=== PATIENT | male | born 1960 ===

== ENCOUNTER 2017-09-15 01:13 | Inpatient (IN) | payer OTHER ==
[2017-09-14 15:44] LABS: INR 1.03
[~2017-09-15] VITALS: Ht 175.3 cm; Wt 129.7 kg
[2017-09-15] VITALS (18 sets, daily range): BP systolic 92–134; BP diastolic 58–83
[~2017-09-15 01:13] MED LIST: ASPI-1471 PO; BENA5TAB32 PO; EZET10TA41 PO; METO25TA23 PO; [UNRECOGNIZED DRUG - CODE] PO
[2017-09-15] MEDS ORDERED: NORMOSOL R SOLN(*) 1000 ML BAG 1,000 ML IV PRN ×2 (06:00→09:40)
[2017-09-15] MEDS ORDERED: FAMOTIDINE 20 MG TAB PO ONE (06:00)
[2017-09-15] MEDS ORDERED: MIDAZOLAM 2 MG/2 ML VIAL IVP ONE (06:00)
[2017-09-15] MEDS ORDERED: cloNIDine EPIDUR INJ 100MCG/ML 40 MCG, ROPIVACAINE 0.5% 20 ML VIAL 25 ML, EPINEPHrine H... INJ ONE (06:00)
[2017-09-15] MEDS ORDERED: TRANEXAMIC AC 1000 MG/10ML SDV 1,000 MG in DEXTROSE 5% 50 ML BAG 50 ML IV ONE (06:00)
[2017-09-15] MEDS ORDERED: LIDOCAINE/SOD BICARB 8.4% SYR ID ONE (06:00)
[2017-09-15] MEDS ORDERED: CLINDAMYCIN(*) 900 MG/NS 50 ML 50 ML IVPB ONE (06:00)
[2017-09-15] MEDS ORDERED: fentaNYL CITR 100 MCG/2 ML AMP ONE (06:50)
[2017-09-15] MEDS ORDERED: PROPOFOL EMUL(*) 10MG/ML 20 ML 20 ML ONE (06:50)
[2017-09-15] MEDS ORDERED: LIDOCAINE MPF 1% 5 ML VIAL ONE (06:50)
[2017-09-15] MEDS ORDERED: ONDANSETRON 4 MG/2 ML VIAL ONE (06:50)
[2017-09-15] MEDS ORDERED: DEXAMETHASONE SOD 4 MG/ML VIAL ONE (06:50)
--- NOTE | 2017-09-15 07:00 | LEVENE H&P ---
DATE OF ADMISSION: September 15, 2017 IDENTIFICATION/CHIEF COMPLAINT The patient is a 57-year-old gentleman with chief complaint of left hip pain. HISTORY OF PRESENT ILLNESS The patient has a longstanding history of left hip arthritis, progressively painful and debilitating, refractory to conservative care. Surgery is indicated to relieve symptoms after failure of nonoperative measures. PAST MEDICAL HISTORY Notable for hypertension controlled on medication, sleep apnea controlled with CPAP. CURRENT MEDICATIONS 1. Indapamide 2.5 mg per day. 2. Zetia 10 mg p.o. q.day. 3. Metoprolol ER 25 mg p.o. q.day. 4. Benazepril 1 p.o. q.day. 5. 81 mg aspirin daily. PAST SURGICAL HISTORY Notable for hernia repair, hip resurfacing on the contralateral side, appendectomy. FAMILY HISTORY Notable for mother with heart disease and an SD. Father with aneurysm. SOCIAL HISTORY Notable for 30+ years of chewing tobacco about a half a can per day. He drinks alcohol socially, denies abuse. REVIEW OF SYSTEMS Noncontributory. PHYSICAL EXAMINATION GENERAL: This is a well-developed, well-nourished male. HEENT: Normocephalic, atraumatic. NECK: Supple. LUNGS: Clear. HEART: Regular. ABDOMEN: Soft. ORTHOPEDIC EXAMINATION: Left hip is very stiff at the limits of flexion and rotation. This reproduces his pain. Hip girdle strength is normal. Skin envelope is intact. Neurovascular function is intact. RADIOGRAPHIC DATA Radiographs demonstrate end-stage hip arthritis. ASSESSMENT Left hip degenerative joint disease, progressively painful and debilitating, refractory to conservative care. PLAN Per patient request, we are going to proceed with total hip arthroplasty. Nature of this procedure, risks, benefits, the anticipated rehabilitative course were reviewed. The risks include, but are not limited to, , major medical or anesthetic complication, infection, neurovascular injury, blood transfusion, stiffness, scarring, fracture, tendon rupture, instability, implant loosening, migration or failure, persistent or recurrent pain, leg length discrepancy, need for additional operation, and other unforeseen. He understands and wishes to proceed. Signed permit was placed in the chart, no guarantees given or implied. DEJA
[2017-09-15] MEDS ORDERED: KETAMINE HCL 200 MG/20 ML MDV ONE (07:30)
[2017-09-15] MEDS ORDERED: ACETAMINOPHEN 325 MG TAB PO PRN (09:40)
[2017-09-15] MEDS ORDERED: ZOLPIDEM TARTRATE 5 MG TAB PO PRN (09:40)
[2017-09-15] MEDS ORDERED: diphenhydrAMINE 25 MG CAP PO PRN (09:40)
[2017-09-15] MEDS ORDERED: diphenhydrAMINE 50 MG/ML VIAL IVP PRN (09:40)
[2017-09-15] MEDS ORDERED: PROMETHAZINE 25 MG/ML 1 ML AMP IVP PRN (09:40)
[2017-09-15] MEDS ORDERED: BISACODYL 10 MG SUPP PR PRN (09:40)
[2017-09-15] MEDS ORDERED: DIAZEPAM 5 MG TAB PO PRN (09:40)
[2017-09-15] MEDS ORDERED: BENZOCAINE/MENTHOL 1 EACH LOZG PO PRN (09:40)
[2017-09-15] MEDS ORDERED: MAGNESIUM HYDROXIDE* 30ML UDCP PO PRN (09:40)
[2017-09-15] MEDS ORDERED: FLUSH 10 ML SYR IVP PRN (09:40)
--- NOTE | 2017-09-15 09:55 | RADIOLOGY IMAGING REPORT ---
FACILITY: [facility] - [place] PATIENT NAME: Ayo Young : 1960 MR: [id number] V: [id number] EXAM DATE: ORDERING PHYSICIAN: YOSSI BENJAMIN TECHNOLOGIST: Location: [facility] [place] Patient: Ayo Young : 1960 Visit/Account:[id number] Date of Sevice: 09/15/2017 Exam type: PELVIS History: p L ABBY Comparison: None. Findings: There are bilateral hip arthroplasties present. The left hip arthroplasties apparently new by histor y. This arthroplasty appears in good anatomic alignment. Skin malena and soft tissue gas projects over the lateral aspect of the left hip IMPRESSION: 1. Bilateral hip arthroplasties appear in good anatomic alignment on this single AP view Report Dictated By: Shayy Benavidez MD at 09/15/2017 9:49 AM Report E-Signed By: Shayy Benavidez MD at 09/15/2017 9:51 AM WSN:[id number]
[2017-09-15] MEDS ORDERED: LISINOPRIL 10 MG TAB PO SCH ×2 (12:00→12:15)
[2017-09-15] MEDS ORDERED: ATOR20TA22 PO (12:04)
--- NOTE | 2017-09-15 12:49 | Hospitalist Consultation ---
History of Present Illness Requesting Physician Yusuf Benjamin MD Reason for Consult Medical Management Chief Complaint s/p L-ABBY with mild pain History of Present Illness is a 57 y.o. male with PMH of HTN, Dyslipidemia, DANUTA and Arthritis who underwent L-ABBY by today. Patient tolerated the anesthesia and surgical procedure well. He is asymptomatic, hemodynamically and medically stable. No significant complaint at present. I have reviewed his medications with him. I was asked ny to evaluate this patient for his medical problems during his hospital stay. History Home Meds Reported Medications Atorvastatin Calcium (LIPITOR) 20 Mg Tablet, 1 TAB PO QDAY, TAB 09/15/17 Aspirin (ASPIR 81) 81 Mg Tablet.dr, 81 MG PO QDAY, TAB 09/07/17 Benazepril Hcl (BENAZEPRIL HCL) 5 Mg Tablet, PO QDAY, TAB 09/07/17 Metoprolol Succinate (METOPROLOL SUCCINATE) 25 Mg Tab.er.24h, 1 TAB PO QHS, TAB 09/07/17 Ezetimibe (ZETIA) 10 Mg Tablet, 10 MG PO QHS, TAB 09/07/17 Indapamide (INDAPAMIDE) 2.5 Mg Tablet, 2.5 MG PO QAM 09/07/17 Allergies: Coded Allergies: Penicillins (Verified Allergy, Severe, SWELLING, 09/07/17) Patient History: Aneurysm FATHER FH: [place] (myocardial infarction) MOTHER FH: heart disease MOTHER Hx Smoking: No (1/2 can/day 30+ yrs) Caffeine Intake: Coffee Caffeine/Cups Per Day: 6 Hx Alcohol Use: Yes When Quit Alcohol?: 09/2009 Hx Substance Use Disorder: No Social Drug Use: Never History of IV Drug Use: No Review of Systems Constitutional: No Fever, No Chills Neurological: No Confusion, No Weakness, No Dizziness Eyes: No Vision Change ENT: No Sinus Congestion, No Sore Throat Cardiovascular: No Chest Pain, No Palpitations Respiratory: No Shortness of Breath, No Cough Gastrointestinal: No Nausea, No Vomiting, No Diarrhea, No Constipation, No Abdominal Pain Genitourinary: No Dysuria, No Hematuria Musculoskeletal: Pain, Impaired Mobility, No Sprain, No Strain Psychiatric: No Depression, No Anxiety Exam Vital Signs Vital Signs Date Time Temp Pulse Resp B/P (MAP) Pulse Ox O2 Delivery O2 Flow Rate FiO2 1/30/18 10:40 70 16 96 09/15/17 10:37 98.5 130/83 (99) Nasal Cannula 2.0 General Appearance: Alert, Awake, No Acute Distress, Afebrile Neuro: No Gross deficits Eyes: PERRLA ENT: Normal Cardiovascular: Normal Rhythm & Peripheral Pulses Respiratory: No Respiratory Distress GI: Abd Soft and Non-Tender (obese) : Normal Extremities: Soft and Non Tender Integumentary: Skin Intact without Lesion / Mass Psych: Alert & Oriented X3, Appropriate Mood & Affect Medical Decision Making Pre-Admit Course Medical Record Review: Yes Assessment and Plan Problems: (1) S/P total hip arthroplasty Status: Acute Assessment & Plan: Management as per surgery and PT Aspirin 325mg po qd for DVTP (2) DANUTA (obstructive sleep apnea) Status: Chronic Assessment & Plan: I will continue his home management I will arrange CPAP , His O2Sat is 92% (3) HTN (hypertension) Status: Chronic Assessment & Plan: Low salt diet I will resume his home BP meds I will replace Benazepril to Lisinopril 10mg daily. I will start Metoprolol 25mg po qd I will hold his Zocol. Central Venous Access Medical Necessity for Access: IV Access Time Spent on Plan of Care: < 30 min Copies to: YUSUF BENJAMIN MD Venous Thromboembolism VTE Risk Physician Assess for VTE Risk: Yes Patient's VTE Risk: Low VTE Diagnostic Test 2 Days Prior to Admit: No Antithrombotics Is Pt On Any Antithrombotics?: No Exam Sepsis Risk: No Definite Risk Problem Qualifiers (1) HTN (hypertension): Hypertension type: essential hypertension Qualified Codes: I10 - Essential ( primary) hypertension ANTONIO RAMOS MD Sep 15, 2017 12:49
[2017-09-15] MEDS: APAP/HYDROCODONE 325/7.5 TAB PO PRN ×3 (13:19→23:30)
[2017-09-15] MEDS: CLINDAMYCIN(*) 900 MG/NS 50 ML 50 ML IVPB SCH ×2 (15:44→22:49)
[2017-09-15] MEDS: CELECOXIB 200 MG CAP PO SCH (16:23)
[2017-09-15] MEDS ORDERED: METOPROLOL SUCC XL 25 MG TABCR PO SCH (21:00)
[2017-09-15] MEDS ORDERED: EZETIMIBE 10 MG TAB PO SCH (21:00)
[2017-09-15] MEDS ORDERED: ATORVASTATIN 10 MG TAB PO SCH (21:00)
--- NOTE | 2017-09-15 23:13 | OPERATIVE REPORT 1 ---
EVENT DATE: September 15, 2017 SURGEON: Yusuf Fam MD ANESTHESIOLOGIST: Jose Patel MD ANESTHESIA: General plus spinal. DIRECTOR OF ARCHIVES: Deon Woodson PA-C PREOPERATIVE DIAGNOSIS Left hip degenerative joint disease. POSTOPERATIVE DIAGNOSIS Left hip degenerative joint disease. PROCEDURE PERFORMED Left total hip arthroplasty. ESTIMATED BLOOD LOSS 400 mL DRAINS None. SPECIMENS None. COMPLICATIONS None apparent. IMPLANTS USED Fred system, a Trident PSL FREED cluster acetabular shell size 54 with a zero- degree Trident X3 polyethylene insert to accommodate a 36 mm head, a Secur-Fit Max 132-degree stem size 11, a Biolox delta ceramic C-taper femoral head 36 mm, -5 mm neck length. INDICATIONS The patient is a 57-year-old gentleman with intractable pain and disability related to end-stage hip arthritis. Surgery is indicated to relieve symptoms after failure of nonoperative measures. DESCRIPTION OF PROCEDURE The patient was taken to the operating room and placed supine on the operating table. A spinal block was administered by the anesthesiologist. General anesthesia was induced, and antibiotics and TXA were administered IV. The patient was positioned in the left lateral decubitus on a well-padded pegboard. All bony prominences and superficial nerves were protected. The left hip girdle and lower extremity were prepped and draped free in the usual sterile fashion for hip arthroplasty. A posterolateral approach was made and carried down through the skin and subcutaneous tissue to the deep fascia. The fascia was incised over the tip of the trochanter and extended distally in line with the femur and proximally in line with the hiram fibers. The hiram fibers were split bluntly. The trochanteric bursa was excised. The interval between the abductor and external rotator was identified. The abductor mechanism was protected with a blunt Hohmann. An L capsulotomy/tenotomy was made with the horizontal limb just above the piriformis. The external rotators and capsule were peeled off the posterolateral femur and secured with 2-0 Vicryl tags for later reattachment. The femoral head was dislocated. End-stage arthritic change was noted. Neck cuts 1.5 cm were made consistent with preoperative templating. The femoral head was extracted. The femur was translocated anteriorly. Acetabular retractors were placed with the tips down on bone to avoid injury to critical neurovascular structures. The labrum and pulvinar were excised. The 44 mm reamer was used to medialize the true medial wall of the acetabulum. It was expanded in 2 mm increments up to 54 where nice rim contact was obtained. The 54 had nice [id number] fit. The 55 was used to open the floor of the acetabulum. The actual shell was then impacted in approximately 40 degrees of lateral opening and 15 to 20 degrees of anteversion using the transverse acetabular ligament, internal bony landmarks, and extracorporeal guide to guide socket placement. Excessive inferior osteophytes were resected with an osteotome and rongeur. The actual liner was impacted into the cleaned and dried shell. Attention was turned to femoral preparation. The superior neck was resected with a cookie cutter. A Charnley found the canal. Tapered reaming was performed up to 11 where nice end-osteal contact was obtained. Broaching started at 9 and worked up to 11, lateralizing and following the [place] version and the calcar to about 12 to 15 degrees of anteversion. Trial reductions were performed off the 11 stem with nice church of the limb length. Soft tissue tension and stability were achievable. The -5 was felt to be optimal. The broach was extracted, and the actual stem was impacted. It seated at the same level as the -5 again. This was felt to be ideal for church, tissue tension, and stability. The Cameron taper was lavaged and dried, and the actual Biolox head was impacted on the Cameron taper. The joint was reduced. External rotators and capsule were reattached through drill holes posteriorly and the femur with #2 Vicryl. The deep fascia was closed with #2 Ethibond distally and #2 Vicryl proximally. The subcutaneous tissue was lavaged. Hemostasis was assured. The derm was closed with 3-0 Vicryl and the skin with surgical malena. Xeroform was applied with a 4 x 4 dry, sterile dressing, and a hip wrap was applied. The patient was rolled supine. An abduction pillow was placed. He was awakened from general anesthesia and taken to the recovery room in stable condition having tolerated the procedure well. The plan is for the standard ABBY rehab protocol. [facility]
[2017-09-16 01:59] VITALS: BP 93/61
[2017-09-16] MEDS: APAP/HYDROCODONE 325/7.5 TAB PO PRN ×3 (04:15→09:59)
[2017-09-16 04:19] VITALS: BP 105/62
[2017-09-16] MEDS: CLINDAMYCIN(*) 900 MG/NS 50 ML 50 ML IVPB SCH (06:25)
[2017-09-16 07:03] VITALS: BP 98/58
[2017-09-16] MEDS: CELECOXIB 200 MG CAP PO SCH (08:33)
[2017-09-16 08:36] VITALS: BP 102/60
[2017-09-16] MEDS ORDERED: ASPI-757 PO (08:50)
[2017-09-16] MEDS ORDERED: HYDR-389 PO (08:53)
[2017-09-16] MEDS ORDERED: ASPIRIN 325 MG TAB PO SCH (09:00)
[2017-09-16 09:24] VITALS: Ht 175.3 cm; Wt 129.7 kg
[2017-09-16] MEDS ORDERED: [UNRECOGNIZED DRUG - CODE] PO (10:35)
[2017-09-16] MEDS ORDERED: BENA5TAB32 PO (10:35)
[2017-09-16] MEDS ORDERED: METO25TA23 PO (10:35)
--- NOTE | 2017-09-16 13:28 | Hospitalist Progress Note ---
Subjective Progress Notes Subjective He reports doing well. He is planning on DC today. Physical Exam Vital Signs Date Time Temp Pulse Resp B/P (MAP) Pulse Ox O2 Delivery O2 Flow Rate FiO2 09/16/17 08:36 102/60 (74) 09/16/17 07:03 98.9 89 16 91 Room Air 09/15/17 18:54 0.5 Intake and Output 09/17/17 07:01 # Voids 1 General Appearance: Alert, Awake Cardiovascular: Regular Rate and Rhythm Respiratory: Clear to Auscultation Assessment and Plan Problems: (1) S/P total hip arthroplasty Status: Acute Assessment & Plan: Management as per Dr. Fam. Aspirin 325mg po qd for DVT prophylaxis. (2) DANUTA (obstructive sleep apnea) Status: Chronic Assessment & Plan: Continue CPAP. (3) HTN (hypertension) Status: Chronic Assessment & Plan: He will monitor his BPs three times a day and resume his metoprolol, benazepril, indapamide in that order if he has sustained systolic BP readings over 140. He will follow up with his primary care physician in the next 1-2 weeks. Central Venous Access Medical Necessity for Access: IV Access Exam Sepsis Risk: No Definite Risk Problem Qualifiers (1) HTN (hypertension): Hypertension type: essential hypertension Qualified Codes: I10 - Essential ( primary) hypertension MADI CHAVEZ MD Sep 16, 2017 13:28
== END 2017-09-16 11:35 | disposition home or self-care (01) | DRG 470 ==
LOC: OR 01:13 → MED 10:40
PROVIDERS: ADMIT Orthopaedic Surgery; ATTEND Orthopaedic Surgery
PROC: 5A09357 Assistance with Respiratory Ventilation, Less than 24 Consecutive Hours, Continuous Positive Airway Pressure (ICD-10-PCS; 2017-09-15)
PROC: 0SRB04A Replacement of Left Hip Joint with Ceramic on Polyethylene Synthetic Substitute, Uncemented, Open Approach (ICD-10-PCS; principal; 2017-09-15 07:13)
DX: M16.12 Unilateral primary osteoarthritis, left hip (principal); I10 Essential (primary) hypertension; F17.220 Nicotine dependence, chewing tobacco, uncomplicated; E78.5 Hyperlipidemia, unspecified; G47.33 Obstructive sleep apnea (adult) (pediatric); Z88.0 Allergy status to penicillin
CPT/HCPCS: 72170; 85610; 86850; 86900; 86901; 97161; 97165; J0171; J0735; J1100; J1885; J2001; J2250; J2405; J2704; J2795; J3010; J3490; J7050; J7060